=== PATIENT | female | born 1980 | race Caucasian/White ===

== ENCOUNTER 2017-05-05 06:11 | Emergency (ER) | payer OTHER, SELFPAY ==
[2017-05-05 06:12] VITALS: BP 119/86; PULSE 102; RESP 15; TEMP 36.7; O2SAT 98; BMI 29.1
[2017-05-05 06:45] LABS: Bacteria 0 SEEN /hpf (None Seen)
[2017-05-05 06:47] LABS: Color, Urine Yellow (Yellow); Glucose, Dipstick Normal (Normal); Ketone-Dipstick Negative (Negative); Leukocyte Esterase-Dipstick 100 /ul (Negative); Nitrite-Dipstick Positive (Negative); Occult Blood-Urine 50 /ul (Negative); Protein-Dipstick 15 mg/dl (Negative); Urine Bilirubin Dipstick Negative (Negative); Urine Clarity Clear (Clear); Urine Urobilinogen Normal (Normal)
[2017-05-05 06:53] LABS: Mucous, Urine 1+ /hpf (<or=2+); Red Blood Cells-Urine 0-5 SEEN /hpf (0-5); Squamous Epithelial Cells - UA 5-10 SEEN /hpf (5-10); White Blood Cells 5-10 SEEN /hpf (0-5)
--- NOTE | 2017-05-05 06:56 | ED.VISSUMM ---
- ER Visit Summary Date of Service: 05/05/17 Chief Complaint: [] Vaginal bleeding, History of Present Illness: The patient is a 36 F [] G3, P1, complaining of vaginal bleeding beginning yesterday. Patient reports she is 18 weeks . Reports she is taking vitamins. She reports she is smoking during . She denies dysuria. Denies abdominal pain. No other complaints at this time. Physical Examination: [] Afebrile, vital signs stable. Cardiovascular exam is regular rate and rhythm. Lungs are clear to auscultation. Abdomen is soft and nontender. Pelvic exam reveals closed cervical loss with no active bleeding. heart tones: 142. Test Results: [] Urinalysis negative. Emergency Department Course and Treatment: [] Patient underwent pelvic exam with female claims collector and this revealed no active bleeding. heart tones were normal. In light of these findings I do not feel any further evaluation is warranted. Patient was encouraged to follow-up with her primary care physician or [facility]. Treatment Plan: [] Discharge, stable. Follow-up with [facility] Disposition: [] Discharge, stable. Impression: [] Threatened This note was generated with [employer] ([employer]N) dictation software. It may contain incorrect words, spelling, and punctuation that were not noted in review of the chart prior to signing ED Disposition - Plan for ED Patient: Chief Complaint: Vag Bld, Preg Referrals: Care Physician,No Primary [Primary Care Provider] -
--- NOTE | 2017-05-05 06:58 | ED.DEP ---
ED Disposition - Plan for ED Patient: Disposition: Home or Assisted Living Chief Complaint: Vag Bld, Preg Instructions: ED Miscarriage Poss Referrals: Care Physician,No Primary [Primary Care Provider] -
[2017-05-05 07:06] VITALS: RESP 16
--- NOTE | 2017-05-05 07:06 | NURSING ---
PELVIC EXAM LOOKED OKAY WITH MILD LEAKAGE NO BLOOD NOTED
== END 2017-05-05 07:08 | disposition home or self-care (01) ==
PROVIDERS: Emergency Provider Emergency Medicine
DX: O20.0 Threatened abortion (principal); O99.332 Smoking (tobacco) complicating pregnancy, second trimester; Z3A.18 18 weeks gestation of pregnancy; Z72.0 Tobacco use
CPT/HCPCS: 81001; 99282

== ENCOUNTER 2017-05-05 15:12 | Inpatient (IN) | payer OTHER, SELFPAY ==
[2017-05-05] MEDS: Lactated Ringers 1,000 ML 125 ML IV (15:16)
--- NOTE | 2017-05-05 15:28 | PCM.HP.OB ---
- Problem List (1) Advanced maternal age (AMA) in Status: Acute (2) Tobacco use complicating Status: Acute Qualifiers: Trimester: second trimester Qualified Code(s): O99.332 - Smoking (tobacco) complicating , second trimester (3) Inevitable spontaneous Status: Acute History Date of Admission: 05/05/17 Final ANTHONY: 10/06/17 Final ANTHONY Source: US <20 weeks Gestational age: 18 Weeks and 0 Days History of this : 36 year old female at 18weeks by 1st trimester U/S. Presented to office with complaints of bleeding, pelvic cramping, and pain. Pain and cramping started last night around 9pm but resolved after lying in bed. This am pain and cramping started again and started having vaginal bleeding. Presented to office for continued pain following ER visit with UTI but untreated. During office visit patient was actively having a SAB. hand and umbilical visualized in vaginal vault. Squad called to transport patient to L&D unit. Transferred via squad to unit without difficulty. Taken to room where patient continued to have contractions and pain. notified and present in office. Pertinent Past Medical History: Advanced maternal age Tobacco use History of SAB at 15w5d Allergies No Known Allergies Allergy (Verified 05/10/16 16:56) Smoking Status: Current every day smoker Alcohol: None Drug Use: none Review of Systems Constitutional: Denies: Chills, Fever, Weight Change Cardiovascular: Denies: Chest Pain, Palpitations Respiratory: Denies: Cough, Shortness of breath at rest, Sputum production Gastrointestinal: Reports: Abdominal Pain, Nausea, Vomiting Genitourinary: Denies: Dysuria Physical Exam General: Alert, Oriented x3, No apparent distress Cardiovascular: Regular rate, Regular Rhythm, No murmurs Lungs: Clear to auscultation, No rhonchi, No wheeze Extremities:: No edema - fetus present in vaginal vault, umbilical cord visualized. Unable to assess cervical dilation as fetus is presenting through cervical os. Assessment/Plan Active and Suspected Problems Advanced maternal age (AMA) in (Acute) Tobacco use complicating (Acute) Inevitable spontaneous (Acute) A: 36 year old female at 18w0d EGA by 1st trimester U/S Inevitable Tobacco Use AMA P: 1) Expectant management at this time, anticipated delivery soon. 2) notified of plan. Estephanie Yi, MSN, CNM
[2017-05-05] MEDS: Oxytocin 30 units/NS 500 ml 30 UNITS/500 ML IV.SOLN 334 UNITS IV (15:30)
[2017-05-05 15:44] LABS: Hematocrit 36.7 % (37-47); Hemoglobin 12.6 g/dl (12.0-15.0); Mean Corp Hgb Conc 34.3 g/gl (32-36); Mean Corpuscular Hgb 30.7 pg (27.0-32.0); Mean Corpuscular Volume 89.5 fL (81-99); Platelet Count 317 K/mm3 (150-450); RBC Distribution Width CV 12.5 % (11.6-14.6); White Blood Count 27.6 K/mm3 (4.4-11.0)
--- NOTE | 2017-05-05 15:47 | PCM.OB.VAG ---
- Problem List (1) Advanced maternal age (AMA) in Status: Acute (2) Tobacco use complicating Status: Acute Qualifiers: Trimester: second trimester Qualified Code(s): O99.332 - Smoking (tobacco) complicating , second trimester (3) Inevitable spontaneous Status: Acute (4) Spontaneous Status: Acute Vaginal Delivery Maternal Presentation: Active Labor, Spontaneous Rupture of Membranes Presented to office with pelvic pain, cramping, and vaginal bleeding. Transferred from [facility] via squad. Transferred to bed and pain increased. Patient felt urge to push and fetus and placenta expelled in one push, intact. No heartbeat detected, male fetus. Pitocin IV given for prophylaxis. 150ml EBL, hemostasis achieved. Patient tearful and crying, no family present at this time. notified of delivery. Mom stable. Amniotic Membrane Rupture Type: Spontaneous Final ANTHONY: 10/06/17 Gestational age: 18 Weeks and 0 Days Date of Procedure: 05/05/17 Pre-Operative Diagnosis: Inevitable Post-Operative Diagnosis: spontaneous , second trimester Surgery/ Procedure Performed: Spontaneous Vaginal Delivery Type of Anesthesia: None Placental Delivery Description: Spontaneous Placenta Disposition: [facility] Estimated Blood Loss: 200ml Infant A gender: Male Episiotomy Description: None Laceration: None Medications given after delivery: IV Pitocin
[2017-05-05 15:58] LABS: Scan Indicated on CBC? Y/N NO
[2017-05-05 16:10] VITALS: BMI 29.0
[2017-05-05] MEDS: Oxytocin 30 units/NS 500 ml 30 UNITS/500 ML IV.SOLN 167 UNITS IV (16:10)
[2017-05-05] MEDS: Naproxen 250 MG Tablet PO (16:25)
--- NOTE | 2017-05-05 16:39 | DCINST_ITS ---
Discharge Diet: No Restrictions Discharge Activity: May Drive, May Shower May resume sexual activity in: 4-6 weeks Weight Bearing Status: Weight bearing as tolerated Additional Instructions: If you experience any of the following, contact your healthcare provider. * Bleeding that soaks a pad every hour for 2 hours * Fever 100.4 or higher * Unrelieved incision or abdominal pain * Swelling, redness, discharge or bleeding from your incision or episiotomy site * Your incision begins to separate * Problems urinating (including inability to urinate or burning while urinating) . * Visual changes * Severe headache * Flu-like symptoms * Pain or redness in one of both of your breasts * Pain, warmth, tenderness or swelling in your legs, especially the calf area * Frequent nausea and vomiting * Symptoms of depression or anxiety If you experience any of the following, call 911 or go to the nearest Emergency Room. * Chest pain * Problems breathing * Seizure activity * Partial or complete paralysis of a body part, slurred speech, weakness or drooping of the face, or a sudden inability to walk or hold your balance Allergies/Adverse Reactions: Allergies No Known Allergies Allergy (Verified 05/10/16 16:56) Primary Care Physician: Care Physician,No Primary [Primary Care Provider] -
--- NOTE | 2017-05-05 16:39 | PCM.DCVAG ---
Discharge Diet: No Restrictions Discharge Activity: May Drive, May Shower May resume sexual activity in: 4-6 weeks Weight Bearing Status: Weight bearing as tolerated Additional Instructions: If you experience any of the following, contact your healthcare provider. Bleeding that soaks a pad every hour for 2 hours Fever 100.4 or higher Unrelieved incision or abdominal pain Swelling, redness, discharge or bleeding from your incision or episiotomy site Your incision begins to separate Problems urinating (including inability to urinate or burning while urinating). Visual changes Severe headache Flu-like symptoms Pain or redness in one of both of your breasts Pain, warmth, tenderness or swelling in your legs, especially the calf area Frequent nausea and vomiting Symptoms of depression or anxiety If you experience any of the following, call 911 or go to the nearest Emergency Room. Chest pain Problems breathing Seizure activity Partial or complete paralysis of a body part, slurred speech, weakness or drooping of the face, or a sudden inability to walk or hold your balance Allergies/Adverse Reactions: Allergies No Known Allergies Allergy (Verified 05/10/16 16:56) Primary Care Physician: Care Physician,No Primary [Primary Care Provider] -
[2017-05-05] MEDS: Cefazolin 2 GM in 0.9% Normal Saline 100 ML IV (17:05)
[2017-05-05] MEDS: 0.9% Saline Lock 10 ML Syringe IV (18:43)
[2017-05-05 19:00] VITALS: BP 108/55; PULSE 88; RESP 20; TEMP 36
[2017-05-05 20:34] VITALS: BP 110/60; PULSE 94; RESP 18; TEMP 36.8
[2017-05-06 00:05] VITALS: BP 103/56; PULSE 78; RESP 18; TEMP 36.3
[2017-05-06 04:16] VITALS: BP 100/58; PULSE 86; RESP 18; TEMP 36.3
--- NOTE | 2017-05-06 06:10 | NURSING ---
At 06, call placed to [facility] for discharge. Discharge order received. Notified [facility] that patient asking for work excuse for 05/05-05/06 and asking about lifting restrictions. [facility] states pt should limit lifting to 25lbs or less. Also asked [facility] about follow up appointment, [facility] states to have patient follow up in two weeks and control options can be discussed at that time, instruct patient to not have intercourse until she is seen in office. Discharge instructions given to patient, both verbal and written. Also gave Radha handout regarding Miscarriage. Patient tearful at this time. Relayed information from [facility] about lifting restrictions and to not have intercourse until she is seen in the office. This RN expressed to patient that it is very easy to conceive after delivery and patient visibly upset by this and states she has not had intercourse since she became . This RN reiterated importance of abstinence until follow up appointment.
--- NOTE | 2017-05-07 02:18 | NURSING ---
Late entry: Patient discharged by ambulation from [facility] unit after refusing a wheelchair.
== END 2017-05-06 06:37 | disposition home or self-care (01) | DRG 779 ==
LOC: WP 15:27
PROVIDERS: Admitting Provider Obstetrics & Gynecology; Visit Provider Obstetrics & Gynecology
DX: O03.9 Complete or unspecified spontaneous abortion without complication (principal); O99.334 Smoking (tobacco) complicating childbirth; F17.200 Nicotine dependence, unspecified, uncomplicated; Z3A.18 18 weeks gestation of pregnancy; Z37.1 Single stillbirth
CPT/HCPCS: 85027; 86850; 86900; 99218; J7120; A4216; G0378

== ENCOUNTER 2018-10-31 14:15 | Emergency (ER) | payer BC, SELFPAY ==
[2018-10-31 14:15] VITALS: BP 106/73; PULSE 91; RESP 17; TEMP 36.8; O2SAT 97; BMI 26.9
--- NOTE | 2018-10-31 14:41 | CT_ITS ---
STUDY: CT ABDOMEN AND PELVIS WITH CONTRAST REASON FOR EXAM: Female, 38 years old. Right upper quadrant pain. RADIATION DOSAGE (If Supplied By Facility): CTDIvol = ( 13.34 ) mGy, DLP = ( 516.51 ) mGycm TECHNIQUE: Transaxial images were obtained from the dome of the diaphragm to the symphysis pubis without oral contrast. 100mL IV/Oral Isovue 300 was administered. Sagittal and coronal images were reconstructed. Individualized dose optimization techniques were used for this CT. COMPARISON: None. FINDINGS: The visualized lung bases are unremarkable. The visualized portions of the heart are within normal limits. There is a low-attenuation focus within the left hepatic lobe adjacent to the falciform ligament consistent with focal fat. There is an additional too small to characterize low-attenuation focus within the right hepatic lobe. Normal gallbladder and extrahepatic biliary system. Normal spleen. Normal pancreas. Normal bilateral adrenal glands. Normal right kidney. Normal left kidney. Normal visualized stomach. Normal small intestine. Normal colon. The appendix is visualized and appears normal. Normal abdominal aorta. Normal inferior vena cava. Normal retroperitoneum. Normal urinary bladder. Normal abdominal wall. There are mild diffuse degenerative changes of the visualized thoracic and lumbar spine. CT/Abdomen/Pelvis WITH Contrast IMPRESSION: No acute intra-abdominal process. Degenerative changes of the visualized thoracic and lumbar spine. Electronically Signed: Christen Delcid MD at 16:54 EDT Tel , Service support ,
[2018-10-31 14:56] LABS: Mucous, Urine 0 SEEN /hpf (<or=2+); Red Blood Cells-Urine 0 SEEN /hpf (0-5); Squamous Epithelial Cells - UA 0 SEEN /hpf (5-10)
[2018-10-31 14:58] LABS: Absolute Lymphocyte Count 3.55 X10^3/uL (0.83-4.51); Absolute Neutrophil Count 4.8 X10^3/uL (2.0-7.7); Basophil# 0.05 X10^3/uL; Basophil% 0.5 % (0-1); Eosinophil# 0.19 X10^3/uL; Eosinophils% 2.1 % (0-5); Hematocrit 42.5 % (37-47); Hemoglobin 14.6 g/dL (12.0-15.0); Lymphocyte # 3.55 X10^3/ul (4.0); Lymphocyte % 38.4 % (19-41); Mean Corp Hgb Conc 34.4 g/dL (32-36); Mean Corpuscular Hgb 31.9 pg (27.0-32.0); Mean Corpuscular Volume 92.8 fL (81-99); Mean Platelet Vol. 9.4 fl (6.2-12.0); Monocyte# 0.64 X10^3/uL; Monocyte% 6.9 % (0-10); NRBC Flagged by Analyzer 0 % (0-5); Neutrophil % 51.9 % (47-70); Platelet Count 321 K/mm3 (150-450); RBC Distribution Width CV 12.6 % (11.6-14.6); RBC Distribution Width SD 42.8 fl (35.1-43.9); Red Blood Count 4.58 M/mm3 (4.2-5.4); White Blood Count 9.3 K/mm3 (4.4-11.0)
--- NOTE | 2018-10-31 14:59 | ED.DCSUM_ITS ---
- ER Visit Summary Date of Service: 10/31/18 Chief Complaint: Abdominal pain History of Present Illness: The patient is a 38 F who presents the emergency department with a right-sided abdominal pain. Patient states symptoms began approximately 1130. Around noon she ate some strawberry pie. She notes pain with ambulation and with touch. She states it wraps slightly around to the side. She points to the right middle quadrant right lower quadrant as the area. She states that she has felt a similar type of pain but much lower in her pelvis when she had an ovarian cyst. She denies any prior abdominal surgeries. Physical Examination: Afebrile vital signs are stable Gen: Well-nourished well-developed Head: Normocephalic atraumatic Eyes: Perrl EOMI ENT: TMs clear no rhinorrhea moist mucous membranes Neck: Supple no lymphadenopathy no JVD nontender CVS: Regular rate rhythm no murmurs normal S1-S2 Respiratory: No distress clear to auscultation bilaterally chest nontender Abdomen: Soft tender to palpation without guarding or rebound in the right middle right lower quadrants. Nondistended normal bowel sounds no masses Back: Nontender Extremity: Nontender no edema Skin: Normal color no rash Neuro: alert orientated ?3 CN II-XII intact normal strength sensation reflexes gait cerebellar Psych: Normal affect normal mood Test Results: CBC CMP lipase and urine was essentially negative. Emergency Department Course and Treatment: Patient received IV fluids Toradol and Zofran. CT of the abdomen pelvis was ordered and is currently pending. This will be checked by oncoming physician. Impression: 1. Acute abdominal pain This note was generated with [employer] dictation software. It may contain incorrect words, spelling, and punctuation that were not noted in review of the chart prior to signing <Frantz Kendall - Last Filed: 10/31/18 15:43> - ER Visit Summary Date of Service: 10/31/18 Chief Complaint: [] History of Present Illness: The patient is a 38 F [] Physical Examination: [] Test Results: [] Emergency Department Course and Treatment: Patient turned over to me from Dr. Christian Erickson. He had previously checked her labs they were all negative. Her CT abdomen and pelvis with IV and oral contrast revealed his negative per the radiologist. I also reviewed the CT. Repeat exam patient is doing well at 1706. Treatment Plan: Discharge to home. Disposition: Discharge to home. Impression: Abdominal pain uncertain etiology This note was generated with [employer] dictation software. It may contain incorrect words, spelling, and punctuation that were not noted in review of the chart prior to signing <Suresh Ortega - Last Filed: 10/31/18 17:10> ED Disposition <Frantz Kendall - Last Filed: 10/31/18 15:43> <Suresh Ortega - Last Filed: 10/31/18 17:10> - Plan for ED Patient: Referrals: Care Physician,No Primary [Primary Care Provider] -
[2018-10-31] MEDS: Ondansetron 4 MG/2 ML Vial IV (15:01)
[2018-10-31] MEDS: Ketorolac 30 MG/ML Syringe IV (15:01)
[2018-10-31 15:02] LABS: Color, Urine Yellow (Yellow); Glucose, Dipstick Normal (Normal); Ketone-Dipstick Negative (Negative); Leukocyte Esterase-Dipstick 25 /ul (Negative); Nitrite-Dipstick Negative (Negative); Occult Blood-Urine Negative /ul (Negative); Protein-Dipstick Negative (Negative); Urine Bilirubin Dipstick Negative (Negative); Urine Clarity Clear (Clear); Urine Urobilinogen Normal (Normal)
[2018-10-31 15:03] LABS: Internal QC Validated? YES +Cl - CLEAR BKGD
[2018-10-31 15:04] LABS: Pregnancy, Urine Negative Negative
[2018-10-31 15:14] LABS: Bacteria 1+ /hpf (None Seen); White Blood Cells 0-5 SEEN /hpf (0-5)
[2018-10-31 15:16] LABS: ALB/GLOB Ratio 1.1 RATIO (0.9-2.4); AST(SGOT) 7 U/L (15-37); Alanine Aminotransfer ALT/SGPT 14 U/L (13-56); Albumin, Serum 3.7 g/dL (3.2-5.0); Alkaline Phosphatase 63 U/L (45-117); Anion Gap 6 (5-15); BUN 9 mg/dL (7-18); BUN/Creat Ratio 10.2 RATIO (10-20); Calcium,Total 8.5 mg/dL (8.5-10.1); Chloride 107 mmol/L (98-107); Creatinine, Serum 0.88 mg/dL (0.55-1.02); EST Glomerular Filtration Rate 77 mL/min (>60); Est Glom Filt Rate - Afr Amer 93 mL/min (>60); Estimated Creatinine Clearance 73.11 ml/min; Globulin 3.4 g/dL (2.2-4.2); Glucose 95 mg/dL (74-106); Lipase 72 U/L (73-393); Potassium 3.8 mmol/L (3.5-5.1); Protein, Total 7.1 g/dL (6.4-8.2); Sodium Level 140 mmol/L (136-145)
--- NOTE | 2018-10-31 17:10 | ED.DEP ---
ED Disposition - Plan for ED Patient: Disposition: Home or Assisted Living Instructions: ABDOMINAL PAIN, Unknown Cause, (Female) Referrals: Evin Dumont MD [STAFF PHYSICIAN] - 3-5 Days if not improving Additional Instructions: Follow-up doctor if not improving.
[2018-10-31 17:20] VITALS: BP 128/88; PULSE 68; RESP 16
== END 2018-10-31 17:21 | disposition home or self-care (01) ==
PROVIDERS: Emergency Medicine; Emergency Provider Emergency Medicine
DX: R10.9 Unspecified abdominal pain (principal); R11.0 Nausea; Z72.0 Tobacco use
CPT/HCPCS: 74177; 80053; 81001; 81025; 83690; 85025; 96374; 96375; 99283; Q9967; A4216; J2405

== ENCOUNTER 2019-04-01 05:38 | Day surgery (SDC) | payer BC, SELFPAY ==
--- NOTE | 2019-03-29 11:49 | PCM.HP.BLA ---
History and Physical Date of Admission: 04/01/19 Allie Martinez Physician [facility] H&P Signed Encounter Date: 03/23/2019 Expand All Collapse All Hide copied text Harini for details Cyrus Moon is a 38 year old female who presents for sterilization consultation. Patient reports has had previous IUD and now currently with the nexplanon. Patient reports has had irregular bleeding itching and pain at the site of insertion. Patient would like to proceed with elective sterilization. Patient previously was scheduled but changed her mind. Patient reports she is certain she does not want more children at this time. She has 1 son age 55 years old. ? PAST MEDICAL HISTORY PAST MEDICAL HISTORY Diagnosis Date ? Abnormal glandular Papanicolaou smear of cervix 2006 ? Abn. Pap smear (cervix), LGSIL ? Edentulous ? ? FRACTURE 2010 ? VERTEBRAE L2 AND L4 FROM FALL ? HPV (human papillomavirus) ? ? Learning disability 01/14/2013 ? Seizure (HCC) AGE 5-6 ? Varicosities ? ? LEGS ? PAST SURGICAL HISTORY PAST SURGICAL HISTORY Procedure Laterality Date ? COLPOSCOPY (VAGINOSCOPY) ? ? ? Colposcopy ? INCISION EARDRUM,ASPIR,GEN ANESTH ? ? ? Myringotomy/tubes ? LEEP PROCEDURE (SEMICONDUCTOR ASSEMBLER DEPT)_*[place] ? 2010 ? NEXPLANON INSERTION Left 09/23/2018 ? UNSPECIFIED ORAL SURGERY PROCEDURE, BY REPORT ? 09/2009 ? Top Teeth Removed ? UNSPECIFIED ORAL SURGERY PROCEDURE, BY REPORT ? ? ? all teeth removed ? FAMILY HISTORY FAMILY HISTORY Problem Relation Age of Onset ? Alcohol/Drug Father ? ? Alcohol ? Diabetes Maternal Grandmother ? ? Cancer Maternal Grandmother ? ? uterine ? Diabetes Paternal Grandmother ? ? Heart Paternal Grandmother ? ? Cancer Paternal Grandfather ? ? Face ? Alcohol/Drug Sister ? ? Alcohol/Drug Brother ? ? Seizures Maternal Uncle ? ? SOCIAL HISTORY Social History ? Tobacco Use ? Smoking status: Current Every Day Smoker ? ? Packs/day: 0.50 ? ? Years: 14.00 ? ? Pack years: 7.00 ? ? Types: Cigarettes ? Smokeless tobacco: Current User Substance Use Topics ? Alcohol use: Yes ? ? Comment: Seldom, not while ? Drug use: No ? CURRENT MEDICATIONS Current Outpatient Medications Medication Sig ? MULTIVITAMIN ORAL Take by mouth. ? No current facility-administered medications for this visit. ? Allergies As of Date: 03/23/2019 Allergen Noted Reaction ANIMAL DANDER 11/24/2009 HAY FEVER [SEASONAL ALLERGIES] 11/24/2009 ? Fully Assessed 03/23/2019 ? REVIEW OF SYSTEMS Abdomen: no pain Bladder: no dysuria.. Expanded ROS: GENERAL: Negative for fever Allergies and current medication updated:Yes ? EXAM: BP 110/70 Wt 152 lb 9.6 oz (69.2kg) ? GENERAL: pleasant, female in no apparent distress HEENT: Normocephalic and atraumatic NECK: full range of motion DERMATOLOGY: Normal, without lesions, non-icteric and non-hirsute NEURO: alert and oriented x3,exam grossly non-focal EXTREMITIES: normal ? ASSESSMENT AND PLAN: Encounter Diagnosis ? ? ICD-10-CM ? 1. Sterilization consult Z30.09 ? ? 2. We reviewed laparoscopic bilateral salpingectomy with removal of Nexplanon implant. Patient declines further use of long-acting reversible contraceptives. 3. Pt has been counseled on risks/benefits and alternatives of surgery including but not limited to anesthesia, bleeding, infection, injury to pelvic structures including bowel, bladder, ureters and vessels. Pt wishes to proceed with surgery at this time. 4. Consent signed. Will need post op meds at time of surgery. ? Allie Torrez MD ?
--- NOTE | 2019-04-01 05:42 | EKG12_ITS ---
Test Reason : PRE-OP Blood Pressure : / mmHG Vent. Rate : 086 BPM Atrial Rate : 086 BPM P-R Int : 126 ms QRS Dur : 084 ms QT Int : 356 ms P-R-T Axes : 066 063 044 degrees QTc Int : 426 ms Normal sinus rhythm Normal ECG No previous ECGs available Confirmed by MATTIE WHITLEY, JOANN ([id number]), medical transcription editor DUTCH REDMOND ([id number]) on 04/02/2019 10:13:07 AM Referred By: Allie Torrez Confirmed By:TRINITY PHELPS MD
[2019-04-01 06:05] VITALS: BP 110/59; PULSE 85; RESP 14; TEMP 36.8; O2SAT 97; BMI 25.1
[2019-04-01 06:08] LABS: Internal QC Validated? YES +Cl - CLEAR BKGD; Pregnancy, Urine Negative Negative
[2019-04-01] MEDS: 0.9% Normal Saline 1,000 ML 100 ML IV (06:31)
[2019-04-01 06:47] LABS: Hematocrit 42.2 % (37-47); Hemoglobin 14.1 g/dL (12.0-15.0); Mean Corp Hgb Conc 33.4 g/dL (32-36); Mean Corpuscular Hgb 30.9 pg (27.0-32.0); Mean Corpuscular Volume 92.3 fL (81-99); Mean Platelet Vol. 8.8 fl (6.2-12.0); Platelet Count 390 K/mm3 (150-450); RBC Distribution Width CV 12.9 % (11.6-14.6); RBC Distribution Width SD 43.9 fl (35.1-43.9); Red Blood Count 4.57 M/mm3 (4.2-5.4); White Blood Count 12.8 K/mm3 (4.4-11.0)
--- NOTE | 2019-04-01 07:30 | FALS_PTH ---
PATIENT: CAROL DESHPANDE LOC: [place] U#:[id number] AGE/SX: 38/F ROOM: RE04/01/[address]: Dr. Allie Torrez, MDDOB: 1980 BED: DIS: 04/01/2019 SPEC #: [id number] RECD: 04/01/19 09:32 STATUS: MAGED HERBERT #: [id number] THIAGO: 04/01/19 07:[address]: Allie Torrez DEPT: SURGICAL PATHOLOGY RECD BY: Luis Bella ENTERED: 04/01/19 10:35 SP TYPE: FALL TUBES OTHR DR: No Primary Care Phys Tissues: Fallopian tube Procedures: Surgery Specimen Level II HEADER OPERATION: Laparoscopic salpingectomy, removal of Nexplanon PRE-OP DIAGNOSIS: Sterilization TISSUE SUBMITTED: Bilateral fallopian tubes MICROSCOPIC DIAGNOSIS Bilateral fallopian tubes, bilateral salpingectomy: Bilateral fallopian tubes including fimbrial ends, no pathologic diagnosis. JAMES:papito 04/02/19 MICROSCOPIC DESCRIPTION Slides are reviewed. GROSS DESCRIPTION Received is one container labeled with the patient's name and designated bilateral fallopian tubes. The specimen consists of bilateral fallopian tubes including fimbrial ends measuring 6.5 cm in length and up to 0.7 cm in diameter and 4.5 cm in length and up to 0.5 cm in diameter. Sections do not reveal any mass lesion. The fallopian tubes are not identified as right or left. Sections reveal unremarkable cut surfaces. Looping Machine Operator sections are submitted in two cassettes with each cassette containing one fallopian tube. / JAMES:papito 04/01/19 TC:4 CPT: 80995 x2
--- NOTE | 2019-04-01 08:09 | OP.PCM_ITS ---
Report of Operation Date of Procedure: 04/01/19 Pre-Operative Diagnosis: desires sterilization, AUB with nexplanon Post-Operative Diagnosis: same Surgery/Procedure Performed:: Removal of Nexplanon implant, Laparoscopic Bilateral salpingectomy Description of Surgical Findings:: normal tubes and ovaries bilaterally, Nexplanon removed intact practical nursing instructor: Gail KAUR MS 3 Type of Anesthesia:: General Special Medications: marcaine Specimen's removed: bilateral tubes and Nexplanon implant Drains: none Estimated Blood Loss (mL): 5 Fluids Replaced: 100 Description of Procedure: After informed consent was obtained patient was taken to the operating room she was placed in supine position she was given anesthesia. Left arm extended and betadine placed- 2cc Marcaine injected -small incision made with scalpel and nexplanon removed without difficulty and intact. She was then placed in the [facility] stirrups and she was prepped and draped in normal sterile fashion. Bladder was drained prior to the start of procedure. At this time attention was turned to the vaginal portion where weighted speculum placed at posterior fornix vagina single-tooth tenaculum was used to gently grasp the internal the cervix. uterus was gently sounded to approximately cm. Uterine manipulator was placed without difficulty. Legs then placed in parallel with the abdomen the tenaculum and the weighted speculum were removed. 2 towel clamps were placed at level of umbilicus. Marcaine was injected infraumbilical and a small incision was made. The 5 mm trocar was placed under direct visualization. CO2 gas was used to insufflate the intra-abdominal cavity. Upon inspection no gross abnormalities appreciated- the uterus tubes and ovaries appeared to be normal. At this time then the LLQ and RLQ ports were placed First Marcaine was injected and small incision was made a knife and the 5 mm trocars were placed. At this time then tubes were traced back to the fimbriated ends. Ligasure was used to coagulate and ligate along mesosalpinx bilaterally until tubes removed completely. Good hemostasis was appreciated. At this time procedure was deemed complete successful. The gas was desufflated on from the intra-abdominal cavity. The trochars were removed. Skin was closed using 4-0 Monocryl in a subcutaneous fashion. Dermabond glue was placed. Instrument lap and needle counts were correct ?2. The uterine manipulator was removed. Vaginal sweep was performed it was negative. There were no complications anticipated normal postoperative course for this patient. Grafts/Implants Used: none - Complications none - Admit VTE Documentation VTE Present on Admission: Yes VTE Mechan Device Prophylaxis: SCD's VTE Pharm Prophylaxis ordered?: No
--- NOTE | 2019-04-01 08:13 | DCINST_ITS ---
Discharge Diet: No Restrictions, - - Increase fluid intake for 48 hours. Discharge Activity: Return to Normal Activity, May Drive - when you are no longer taking narcotic pain medications., May Shower, May Take a Tub Bath - in 7 days., - - Ambulate often the next week after surgery. Return to work on:: 04/05/19 May shower in (days): 1 Lifting Restrictions: 25 Additional Activity Instructions:: Nothing in the vagina for the next 5 days. Call your doctor if your incision/area has: Continuous Slow Oozing, Sudden Increased Bleeding, Increased Pain/ Swelling, Increased Redness, Foul Smelling Discharge, Swelling at the incision site Call your doctor if you observe: Fever of 101 or Higher Cleanse incision/area with: - - removed Large arm wrap in 24 hrs keep underneath bandage on for 3 days. You have skin glue over abdominal incisions. do not pick off. Let soap and water run over incision sites. Allergies/Adverse Reactions: Allergies No Known Allergies Allergy (Verified 03/31/19 08:08) Medications to take at Discharge NK 10/31/18 Primary Care Physician: Care Physician,No Primary [Primary Care Provider] - Test Results: Test results from this visit will be discussed in further detail at your follow- up appointment, if applicable. Please Follow Up With: Allie Torrez MD When: as scheduled in 2 weeks
[2019-04-01] MEDS: Bupivacaine Mpf 0.5% 30 ML VIAL (08:14)
[2019-04-01 08:26] VITALS: BP 110/59; BP 119/80; PULSE 67; RESP 16; TEMP 36.4; O2SAT 99
[2019-04-01 08:30] VITALS: BP 110/59; BP 116/77; PULSE 65; RESP 16; O2SAT 99
[2019-04-01 08:45] VITALS: BP 110/59; BP 125/74; PULSE 80; RESP 16; O2SAT 96
[2019-04-01 09:00] VITALS: BP 110/59; BP 130/74; PULSE 70; RESP 16; TEMP 36.4; O2SAT 100
[2019-04-01 09:32] VITALS: BP 110/59; BP 121/79; PULSE 79; RESP 18; TEMP 36.6; O2SAT 97
== END 2019-04-01 09:36 | disposition home or self-care (01) ==
LOC: SDC 05:39 → AC 05:40
PROVIDERS: Referring Provider Obstetrics & Gynecology; Visit Provider Obstetrics & Gynecology
PROC: (CPT 58661; principal; 2019-04-01 07:15)
DX: Z30.2 Encounter for sterilization (principal); F17.210 Nicotine dependence, cigarettes, uncomplicated
CPT/HCPCS: 00840; 11982; 58661; 36415; 81025; 85027; 88302; 93005; J7030; J2405